=== PATIENT | female | born 1980 | race Caucasian/White ===

== ENCOUNTER → 2020-04-24 | Outpatient (CLI) | payer BC ==
[2020-04-26 16:07] LABS: HPV 16 Negative (Negative); HPV 18 Negative (Negative); HPV OTHER HR TYPES Negative (Negative)
== END ==
LOC: LAB UCHC 14:24 → LAB SHORT 14:24
PROVIDERS: Registered Nurse Community Health
DX: Z12.4 Encounter for screening for malignant neoplasm of cervix (principal)
CPT/HCPCS: 87624; G0123

== ENCOUNTER → 2023-04-10 | Outpatient (CLI) | payer SELFPAY | LOC: LAB 11:00 → LAB SHORT 11:00 | DX: J03.90 Acute tonsillitis, unspecified (principal) | CPT/HCPCS: 87081; 87147 ==

== ENCOUNTER → 2023-08-21 | Outpatient (CLI) | payer BC ==
[2023-08-29 09:58] LABS: HPV SOURCE Cervical
== END ==
LOC: LAB 08:55 → LAB SHORT 08:55
PROVIDERS: Advanced Practice Midwife
DX: Z01.419 Encounter for gynecological examination (general) (routine) without abnormal findings (principal)
CPT/HCPCS: G0123